=== PATIENT | male | born 1975 | race African-American/Black ===

== ENCOUNTER 2024-02-25 20:54 | Emergency (ER) | payer SELFPAY ==
[2024-02-25 21:27] LABS: Specific Gravity 1.015 (1.005-1.030); Sqamous Epithelial None Seen /HPF (None Seen); Urine Bacteria None Seen /HPF (<20); Urine Bilirubin NEGATIVE (Negative); Urine Blood Negative (Negative); Urine Clarity Clear (Clear); Urine Color Light-Yellow (Yellow); Urine Culture Reflex Order NOT NEEDED; Urine Glucose NEGATIVE (Negative); Urine Ketones NEGATIVE (Negative); Urine Microscopic Reflex YN ORDER UMIC; Urine Nitrite NEGATIVE (Negative); Urine Protein NEGATIVE (Negative); Urine RBC <5 /HPF (None Seen); Urine Urobilinogen Normal (Normal); Urine WBC <5 /HPF (<5); Urine pH 5.5 (5.0-7.0)
[2024-02-25 21:34] LABS: Barbiturates NEGATIVE (NEGATIVE); Benzodiazepines NEGATIVE (NEGATIVE); Cocaine NEGATIVE (NEGATIVE); METHAMPHETAM POSITIVE (NEGATIVE); Methadone NEGATIVE (NEGATIVE); Opiates NEGATIVE (NEGATIVE); Phencyclidine NEGATIVE (NEGATIVE); THC Cannibis NEGATIVE (NEGATIVE)
[2024-02-25] MEDS ORDERED: FOLIC ACID 5 MG/ML VIAL ONE (21:42)
[2024-02-25] MEDS ORDERED: THIAMINE 200 MG/2 ML INJ ONE (21:42)
[2024-02-25] MEDS ORDERED: MULTIVITAMINS 10 ML VIAL (INJ) IV ONE (21:42)
[2024-02-25] MEDS ORDERED: NA CHLORIDE 0.9% 2,000 ML ONE (21:43)
[2024-02-25 21:47] LABS: Absolute Basophils 0.1 K/uL (0-0.5); Absolute Eosinophils 0.1 K/uL (0-0.5); Absolute Lymphocytes (CBC) 2.7 K/uL (0.7-4.9); Absolute Monocytes 0.4 K/uL (0.1-1.3); Absolute Neutrophil 9.5 K/uL (1.8-8.0); Eosinophils % 0.5 % (0-4.4); Hematocrit 41.6 % (39.6-49.0); Hemoglobin 14.1 g/dL (13.6-17.9); Lymphocytes % 20.9 % (15.3-44.8); MCH 29.6 pg (27.0-35.0); MCHC 33.8 g/dL (32.0-36.0); MCV 87.6 fL (80-100); Monocytes % 3.3 % (3.3-12.3); Neutrophils % 74.3 % (41.7-73.7); Nucleated Red Blood Cells % 0.1 % (0-0); Platelets 330 thou/uL (152-406); RBC Red Blood Cell Count 4.75 M/uL (4.33-5.43); Red Cell Distribution Width 13.9 % (12.1-15.2)
[2024-02-25 22:10] LABS: ALT/SGPT 31 U/L (16-61); AST/SGOT 12 U/L (15-37); Albumin 3.5 g/dL (3.4-5.0); Albumin/Globulin Ratio 0.9 (1.1-1.8); Alkaline Phosphatase 48 U/L (45-117); Anion Gap 8.6 mEq/L (5.0-15.0); BUN Blood Urea Nitrogen 11 mg/dL (7-18); Bicarbonate 25 mEq/L (21-32); Bilirubin Direct < 0.2 mg/dL (0-0.2); Bilirubin Indirect, Calculated 0.1 mg/dL (0.2-0.8); Bilirubin Total 0.3 mg/dL (0.2-1.0); Globulin 3.7 g/dL (2.3-3.5); Glomerular Filtration Rate 103 ml/min (=/>90); Glucose Level 211 mg/dL (74-106); Potassium 3.6 mEq/L (3.5-5.1); Protein, Total 7.2 g/dL (6.4-8.2); Sodium Level 142 mEq/L (136-145); Troponin High Sensitivity 7.4 pg/mL (<58.9)
[2024-02-25 22:14] LABS: PT Prothrombin Time 9.8 SECONDS (9.4-12.5); PTT, Activated Partial Thromb 28.9 SECONDS (24.3-36.9); Protime INR 0.87
--- NOTE | 2024-02-25 23:48 | EDPHYS ---
Physician Documentation [facility] Name: Constantino Chao Jr Age: 48 yrs Sex: Male : 1975 Arrival Date: 02/25/2024 Time: 20:54 Bed 15 Private MD: ED Physician Adonis Sevilla HPI: 02/24 22:49 This 48 yrs old Black Male presents to ER via EMS with complaints of Fall Injury. kali 22:49 Details of fall: The patient fell from an upright position, while standing. Onset: The kali symptoms/episode began/occurred just prior to arrival. Associated injuries: The patient sustained neck injury, upper back injury, injury to the low back. Severity of symptoms: At their worst the symptoms were mild, moderate, in the emergency department the symptoms are unchanged. It is unknown whether or not the patient has had similar symptoms in the past. Historical: - Allergies: 21:00 Aspirin; me1 21:00 BACLOFEN; me1 21:00 Morphine; me1 - PMHx: 21:00 Diabetes mellitus; Headache; Chronic back pain; me1 - PSHx: 21:00 back surgery; me1 - Immunization history:: Adult Immunizations up to date. - Infectious Disease History:: Denies. - Social history:: Smoking status: Patient reports the use of cigarette tobacco products, smokes one pack cigarettes per day. - Family history:: not pertinent. ROS: 22:49 Constitutional: Negative for fever, chills, and weight loss, Eyes: Negative for injury, kali pain, redness, and discharge, ENT: Negative for injury, pain, and discharge, Neck: Negative for injury, pain, and swelling, Cardiovascular: Negative for chest pain, palpitations, and edema, Respiratory: Negative for shortness of breath, cough, wheezing, and pleuritic chest pain, Abdomen/GI: Negative for abdominal pain, nausea, vomiting, diarrhea, and constipation, Back: Negative for injury and pain, : Negative for injury, bleeding, discharge, and swelling, MS/Extremity: Negative for injury and deformity, Skin: Negative for injury, rash, and discoloration, Psych: Negative for depression, anxiety, suicide ideation, homicidal ideation, and hallucinations, Allergy/Immunology: Negative for hives, rash, and allergies, Endocrine: Negative for neck swelling, polydipsia, polyuria, polyphagia, and marked weight changes, Hematologic/Lymphatic: Negative for swollen nodes, abnormal bleeding, and unusual bruising, 22:49 Neuro: Positive for altered mental status, Exam: 22:49 Constitutional: This is a well developed, well nourished patient who is awake, alert, kali and in no acute distress. Head/Face: Normocephalic, atraumatic. Eyes: Pupils equal round and reactive to light, extra-ocular motions intact. Lids and lashes normal. Conjunctiva and sclera are non-icteric and not injected. Cornea within normal limits. Periorbital areas with no swelling, redness, or edema. ENT: Nares patent. No nasal discharge, no septal abnormalities noted. Tympanic membranes are normal and external auditory canals are clear. Oropharynx with no redness, swelling, or masses, exudates, or evidence of obstruction, uvula midline. Mucous membranes moist. Neck: Trachea midline, no thyromegaly or masses palpated, and no cervical lymphadenopathy. Supple, full range of motion without nuchal rigidity, or vertebral point tenderness. No Meningismus. Chest/axilla: Normal chest wall appearance and motion. Nontender with no deformity. No lesions are appreciated. Cardiovascular: Regular rate and rhythm with a normal S1 and S2. No gallops, murmurs, or rubs. Normal PMI, no JVD. No pulse deficits. Respiratory: Lungs have equal breath sounds bilaterally, clear to auscultation and percussion. No rales, rhonchi or wheezes noted. No increased work of breathing, no retractions or nasal flaring. Abdomen/GI: Soft, non-tender, with normal bowel sounds. No distension or tympany. No guarding or rebound. No evidence of tenderness throughout. Back: No spinal tenderness. No costovertebral tenderness. Full range of motion. Male : Normal genitalia with no discharge or lesions. Skin: Warm, dry with normal turgor. Normal color with no rashes, no lesions, and no evidence of cellulitis. MS/ Extremity: Pulses equal, no cyanosis. Neurovascular intact. Full, normal range of motion. Neuro: Awake and alert, GCS 15, oriented to person, place, time, and situation. Cranial nerves II-XII grossly intact. Motor strength 5/5 in all extremities. Sensory grossly intact. Cerebellar exam normal. Normal gait. Psych: Awake, alert, with orientation to person, place and time. Behavior, mood, and affect are within normal limits. 23:02 ECG was reviewed by the Attending Physician. [facility] Vital Signs: 20:57 BP 137 / 81; Pulse 96; Resp 22; Temp 98.4; Pulse Ox 100% ; Weight 88.45 kg; Height 6 me1 ft. 2 in. ; Pain 10/; 21:30 BP 130 / 79; Pulse 96; Resp 20; Pulse Ox 96% ; me1 22:00 BP 134 / 81; Pulse 85; Resp 19; Pulse Ox 96% ; me1 23:28 BP 118 / 77; Pulse 88; Resp 19; Pulse Ox 97% ; me1 02/25 00:41 BP 124 / 90; Pulse 82; Resp 16; Pulse Ox 97% ; dd2 02/24 20:57 Body Mass Index 25.04 (88.45 kg, 187.96 cm) hi1 02/24 20:57 Pain Scale: [place] [facility] [place] MDM: 02/24 20:59 Medical Screening Exam initiated [facility] 22:51 Differential diagnosis: abrasion, closed head injury, contusion, fracture, laceration, kali multiple trauma, sprain, strain. Data reviewed: vital signs, nurses notes, lab test result(s), EKG, radiologic studies, doppler. Consideration of Admission/Observation Escalation of care including admission/observation considered. I considered the following discharge prescriptions or medication management in the emergency department Medications were administered in the Emergency Department. See MAR. Independent interpretation of the following test(s) in the Emergency Department EKG: See my EKG interpretation above. Test considered but Not performed: MRI: no mri brain. Historians other than the Patient: EMS: ems well informed. Care significantly affected by the following chronic conditions: Diabetes, chronic back pain. Counseling: I had a detailed discussion with the patient and/or guardian regarding the historical points, exam findings, and any diagnostic results supporting the discharge/admit diagnosis, the presence of at least one elevated blood pressure reading (>120/80) during this emergency department visit, lab results, radiology results, the need for outpatient follow up, for definitive care, a family practitioner. 02/24 21:04 Order name: Acetaminophen; Complete Time: 22:42 [facility] 02/24 21:04 Order name: Basic Metabolic Panel; Complete Time: 22:42 [facility] 02/24 21:04 Order name: CBC with Diff; Complete Time: 22:42 [facility] 02/24 21:04 Order name: ETOH Level; Complete Time: 22:42 [facility] 02/24 21:04 Order name: Hepatic Function; Complete Time: 22:42 [facility] 02/24 21:04 Order name: PT-INR; Complete Time: 22:42 [facility] 02/24 21:04 Order name: Ptt, Activated; Complete Time: 22:42 [facility] 02/24 21:04 Order name: Salicylate; Complete Time: 22:42 [facility] 02/24 21:04 Order name: Urinalysis w/ reflexes; Complete Time: 22:42 [facility] 02/24 21:04 Order name: Urine Drug Screen; Complete Time: 22:42 [facility] 02/24 21:04 Order name: Troponin High Sensitivity; Complete Time: 22:42 [facility] 02/24 21:04 Order name: CT Head C Spine [facility] 02/24 21:04 Order name: CT Chest Abdomen Pelvis W/O Contrast [facility] 02/24 21:04 Order name: EKG - Nurse/Tech; Complete Time: 21:27 [facility] 02/24 21:04 Order name: IV Saline Lock; Complete Time: 21:38 [facility] 02/24 21:04 Order name: Labs collected and sent; Complete Time: 21:38 [facility] 02/24 21:04 Order name: Suicide Screening ([place]); Complete Time: 21:06 [facility] EC:02 Rate is 97 beats/min. Rhythm is regular. QRS [place] is Normal. [place] interval is normal. QRS kali interval is normal. QT interval is normal. No Q waves. T waves are Normal. No ST changes noted. Clinical impression: NSR w/ Non-specific ST/T Changes and No evidence of ischemia. Interpreted by me. Reviewed by me. Administered Medications: 21:48 Drug: Banana Bag - (Multivitamin IV 1 amp, NS 0.9% IV 1000 ml, Thiamine IV 100 mg, me1 foLIC Acid IVPB 1 mg) IV at 500 ml/hr once Route: IV; Rate: 500 ml/hr; Site: right antecubital; 02/25 00:08 Follow up: Response: No adverse reaction; IV Status: Completed infusion; IV Intake: me1 1000ml 02/24 21:49 Drug: NS 0.9% IV 1000 ml IV at 1000 ml once; to be given as a bolus over 60 minutes me1 Route: IV; Rate: 1000 ml; Site: right antecubital; 23:38 Follow up: Response: No adverse reaction; IV Status: Completed infusion; IV Intake: me1 1000ml Disposition Summary: 02/25/24 23:47 Discharge Ordered Notes: Location: Home kali Problem: new kali Symptoms: have improved kali Condition: Stable kali Diagnosis - Fall on same level, unspecified kali - Syncope Near kali - Abuse of other non-psychoactive substances kali - Alcohol abuse with intoxication kali Followup: kali - With: Private Physician - When: 2 - 3 days - Reason: Recheck today's complaints, Continuance of care, Re-evaluation by your physician Discharge Instructions: - Discharge Summary Sheet kali - Finding Treatment for Addiction kali - Alcohol Intoxication kali - Near-Syncope kali - Substance Use Disorder kali - Alcohol Intoxication, Ropr-bc-Algf kali - Near-Syncope, Sfqe-cz-Meal kali - Substance Use Disorder and Mental Illness kali - Illegal Drug Use Information, Adult kali Forms: - Medication Reconciliation Form kali - Antibiotic Education kali - Prescription Opioid Use kali - Patient Portal Instructions kali - Leadership Thank You Letter kali Signatures: Dispatcher [employer] EDAdonis Slaughter MD MD cha Eddleman, Michelle, RN RN me1 Corrections: (The following items were deleted from the chart) 21:05 21:05 Head C Spine MPR Wo Con+CT.RAD.BRZ ordered. EDMS EDMS 21:05 21:05 Chest Abdomen Pelvis Wo Con+CT.RAD.BRZ ordered. EDMS EDMS
--- NOTE | 2024-02-25 23:48 | ER ---
Nurse's Notes [facility] Name: Constantino Chao Jr Age: 48 yrs Sex: Male : 1975 Arrival Date: 02/25/2024 Time: 20:54 Bed 15 Private MD: Diagnosis: Fall on same level, unspecified;Syncope Near;Abuse of other non-psychoactive substances;Alcohol abuse with intoxication Presentation: 02/24 20:57 Chief complaint: EMS states: toned out for fall. Family found patient lying passed out me1 in the driveway. Patient had already called EMS for SOB. On arrival patient has severe pain 10/10 to neck, left arm and back and states he thinks he fell. Patient drank "a lot of whiskey" today after being sober for several years. Coronavirus screen: Vaccine status: Patient reports being unvaccinated. Ebola Screen: No symptoms or risks identified at this time. Initial Sepsis Screen: Does the patient meet any 2 criteria? No. Patient's initial sepsis screen is negative. Does the patient have a suspected source of infection? No. Patient's initial sepsis screen is negative. Risk Assessment: Do you want to hurt yourself or someone else? Patient reports no desire to harm self or others. Onset of symptoms is unknown. 20:57 Method Of Arrival: EMS: [facility] [place] 20:57 Acuity: MARNI 3 me1 Triage Assessment: 21:01 General: Appears uncomfortable, unkempt, well developed, well nourished, Behavior is me1 cooperative, appropriate for age, anxious, crying. Pain: Complains of pain in back of neck, back of left arm and posterior chest Pain does not radiate. Pain currently is 10 out of 10 on a pain scale. Quality of pain is described as sharp, Pain began suddenly, Is continuous. EENT: No signs and/or symptoms were reported regarding the EENT system. Neuro: Level of Consciousness is awake, alert, obeys commands, Oriented to person, place, time, situation, Appropriate for age. Cardiovascular: Patient's skin is warm and dry. Respiratory: Airway is patent Respiratory effort is even, unlabored, Respiratory pattern is regular, symmetrical. GI: No signs and/or symptoms were reported involving the gastrointestinal system. : No signs and/or symptoms were reported regarding the genitourinary system. Derm: Skin is intact, is healthy with good turgor, Skin is pink, warm \\T\\ dry. Musculoskeletal: Reports pain in back of neck, back of left arm and posterior chest. Injury Description: s/p fall with pain to neck, back and left arm. Historical: - Allergies: 21:00 Aspirin; me1 21:00 BACLOFEN; me1 21:00 Morphine; me1 - PMHx: 21:00 Diabetes mellitus; Headache; Chronic back pain; me1 - PSHx: 21:00 back surgery; me1 - Immunization history:: Adult Immunizations up to date. - Infectious Disease History:: Denies. - Social history:: Smoking status: Patient reports the use of cigarette tobacco products, smokes one pack cigarettes per day. - Family history:: not pertinent. Screenin:03 [facility] ED Fall Risk Assessment (Adult) History of falling in the last 3 months, or1 including since admission Yes- single mechanical fall (1 pt) Confusion or Disorientation No (0 pts) Intoxicated or Sedated Yes (3 pts) Impaired Gait Yes (1 pt) Mobility Assist Device Used No (0 pt) Altered Elimination No (0 pt) Score/Fall Risk Level 3 or more points = High Risk Maintained a safe environment, Provided non-skid footwear, Hourly rounding (assess needs \\T\\ fall precautionary measures) done. Abuse screen: Denies threats or abuse. Nutritional screening: No deficits noted. Tuberculosis screening: No symptoms or risk factors identified. Assessment: 21:03 General: See triage assessment.. Pain: Complains of pain in posterior chest and back of me1 left arm and back of neck. Psych: 21:06 [place] Suicide Severity Screening: In the past month, have you wished you were me1 or wished you could go to sleep and not wake up? Patient responds "No." "In the past month, have you actually had any thoughts of killing yourself?" Patient responds "no." "In your lifetime, have you ever done anything, started to do anything, or prepared to do anything to end your life?" Patient responds "no.". Subjective: Patient's mood is sad, Delusions are denied, Hallucinations are denied Having thoughts of Denies SI or HI. Objective: Patient is cooperative, restless, Speech is normal, Affect is appropriate. Interventions: Urine collected and sent for urine drug test. Safety Checks: n/a. Patient uses "a lot of whiskey". Vital Signs: 20:57 BP 137 / 81; Pulse 96; Resp 22; Temp 98.4; Pulse Ox 100% ; Weight 88.45 kg; Height 6 me1 ft. 2 in. ; Pain 10/10; 21:30 BP 130 / 79; Pulse 96; Resp 20; Pulse Ox 96% ; me1 22:00 BP 134 / 81; Pulse 85; Resp 19; Pulse Ox 96% ; me1 23:28 BP 118 / 77; Pulse 88; Resp 19; Pulse Ox 97% ; me1 02/25 00:41 BP 124 / 90; Pulse 82; Resp 16; Pulse Ox 97% ; dd2 02/24 20:57 Body Mass Index 25.04 (88.45 kg, 187.96 cm) me1 02/24 20:57 Pain Scale: Adult [facility] [place] ED Course: 02/24 20:57 Patient arrived in ED. me1 20:59 Adonis Sevilla MD is Attending Physician. kali 21:00 Triage completed. me1 21:01 Arm band placed on Patient placed in an exam room. me1 21:03 Patient has correct armband on for positive identification. Bed in low position. Call [facility] [place] light in reach. Side rails up X2. Provided Education on: POC. Verbalized understanding. . Client placed on continuous cardiac and pulse oximetry monitoring. NIBP monitoring applied. Pulse ox on. NIBP on. 21:03 No provider procedures requiring assistance completed. me1 21:13 Yvette Tarango, RN is Primary Nurse. me1 21:28 EKG done, by ED staff, reviewed by Adonis Sevilla MD. oe 21:38 Troponin High Sensitivity Sent. me1 21:38 Acetaminophen Sent. me1 21:39 Basic Metabolic Panel Sent. me1 21:39 CBC with Diff Sent. me1 21:39 ETOH Level Sent. me1 21:39 Hepatic Function Sent. me1 21:39 PT-INR Sent. me1 21:39 Ptt, Activated Sent. me1 21:39 Salicylate Sent. me1 21:39 Initial lab(s) drawn, by or, sent to lab. Urine collected: clean catch specimen, [place] me1 colored. Inserted saline lock: 20 gauge in right antecubital area, using aseptic technique. 22:44 CT Head C Spine In Process Unspecified. EDMS 22:44 CT Chest Abdomen Pelvis W/O Contrast In Process Unspecified. EDMS 02/25 00:41 IV discontinued, intact, bleeding controlled, No redness/swelling at site. Pressure dd2 dressing applied. Administered Medications: 02/24 21:48 Drug: Banana Bag - (Multivitamin IV 1 amp, NS 0.9% IV 1000 ml, Thiamine IV 100 mg, me1 foLIC Acid IVPB 1 mg) IV at 500 ml/hr once Route: IV; Rate: 500 ml/hr; Site: right antecubital; 02/25 00:08 Follow up: Response: No adverse reaction; IV Status: Completed infusion; IV Intake: me1 1000ml 02/24 21:49 Drug: NS 0.9% IV 1000 ml IV at 1000 ml once; to be given as a bolus over 60 minutes me1 Route: IV; Rate: 1000 ml; Site: right antecubital; 23:38 Follow up: Response: No adverse reaction; IV Status: Completed infusion; IV Intake: me1 1000ml Medication: 21:03 VIS not applicable for this client. me1 Intake: 23:38 IV: 1000ml; Total: 1000ml. me1 02/25 00:08 IV: 1000ml; Total: 2000ml. me1 Outcome: 02/24 23:47 Discharge ordered by . kali 02/25 00:41 Discharged to home ambulatory, dd2 Condition: stable Discharge instructions given to patient, Instructed on discharge instructions, follow up and referral plans. Demonstrated understanding of instructions, follow-up care, 00:42 Patient left the ED. dd2 Signatures: Dispatcher [employer] Adonis Longoria MD MD cha Espinosa, [place] oe Eddleman, Michelle, STEVEN RN me1 MARKO KIM RN RN dd2
--- NOTE | 2024-02-25 23:59 | RAD REPORT ---
EXAM: CT Chest, Abdomen and Pelvis Without Intravenous Contrast CLINICAL HISTORY: The patient is 48 years old and is Male; COUGH TECHNIQUE: Axial computed tomography images of the chest, abdomen and pelvis without intravenous contrast. S agittal and coronal reformatted images were created and reviewed. This CT exam was performed using one or more of the following dose reduction techniques: automated exposure control, adjustmen t of the mA and/or kV according to patient size, and/or use of iterative reconstruction technique. COMPARISON: No relevant prior studies available. FINDINGS: CHEST: LUNGS: The lungs are clear of focal opacity, mass, or consolidation. PLEURAL SPACE: Unremarkable. No significant effusion. No pneumothorax. HEART: No cardiomegaly. No pericardial effusion. ABDOMEN: LIVER: Homogeneous without focal mass. GALLBLADDER AND BILE DUCTS: The gallbladder slightly contracted. No calcified gallstones or ducta l dilatation is seen. PANCREAS: Unremarkable. No ductal dilation. SPLEEN: Unremarkable. ADRENALS: Unremarkable. No mass. KIDNEYS AND URETERS: Mild prominence of the right ureter is present. No obstructing renal or uret eral calculus is seen. Right intrarenal calcifications are present. Mild nonspecific right perinephric stranding is suggested. There is no hydronephrosis or hydroureter of the left kidney. STOMACH AND BOWEL: The stomach is well distended with food contents. The small bowel is normal in caliber. Stool is present throughout the colon. Scattered colonic diverticula are noted without surrounding inflammation. There is no mucosal thickening or evidence of obstruction. PELVIS: APPENDIX: The appendix is normal in caliber without surrounding inflammation. BLADDER: The bladder is well distended. No stones. REPRODUCTIVE: Unremarkable as visualized. CHEST, ABDOMEN and PELVIS: INTRAPERITONEAL SPACE: Unremarkable. No significant fluid collection. No free air. BONES/JOINTS: There is no acute fracture of the visualized axial and appendicular skeleton. The v ertebral body heights and alignment are maintained. Minimal degenerative change at L5-S1 is noted. SOFT TISSUES: A small fat-containing umbilical hernia is present. VASCULATURE: Unremarkable. No aortic aneurysm. LYMPH NODES: Unremarkable. No enlarged lymph nodes. IMPRESSION: 1. Mild prominence of the right ureter without obstructing calculus. Findings may be secondary to r ecently passed stone. Superimposed mild pyelonephritis is within the differential mild perinephric stranding 2. No evidence of solid organ injury or traumatic bony findings on this noncontrasted CT of the [address], abdomen, and pelvis. Electronically signed by: Destinee Hartley MD 02/25/2024 11:42 PM CDT RP Due to temporary technical issues with the PACS/[employer] reporting system, reports are being paolo d by the in-house radiologist without review as a courtesy to ensure prompt reporting the interpreting radiologist is fully responsible for the content of the report. Transcribed Date/Time: 02/25/2024 11:59 PM
--- NOTE | 2024-02-25 23:59 | RAD REPORT ---
EXAM: CT Head and Cervical Spine Without Intravenous Contrast CLINICAL HISTORY: The patient is 48 years old and is Male; TRAUMA TECHNIQUE: Axial computed tomography images of the head/brain and cervical spine without intravenous contrast. Sagittal and coronal reformatted images were created and reviewed. This CT exam was performed using one or more of the following dose reduction techniques: automated exposure control, adjustmen t of the mA and/or kV according to patient size, and/or use of iterative reconstruction technique. COMPARISON: No relevant prior studies available. FINDINGS: BRAIN: Unremarkable. No hemorrhage. No significant white matter disease. No edema. VENTRICLES: Unremarkable. No ventriculomegaly. SKULL: No acute fracture. SINUSES: Unremarkable as visualized. No acute sinusitis. MASTOID AIR CELLS: Unremarkable as visualized. No mastoid effusion. VERTEBRAE: Straightening of the normal cervical curvature is present. The vertebral body height s and alignment are maintained. There is no acute fracture. Extensive facet arthropathy on the left from C2 through C5 and on the right at C3-C4 is noted. DISCS/SPINAL CANAL/NEURAL FORAMINA: The intervertebral disc spaces are maintained. No spinal dong l stenosis. SOFT TISSUES: The soft tissues are normal. LUNG APICES: The lung apices are clear. IMPRESSION: 1. No acute intracranial findings. 2. Straightening of the normal cervical curvature is present. Findings may be secondary to patien t position versus muscle spasm. Electronically signed by: Destinee Hartley MD 02/25/2024 11:37 PM CDT RP Due to temporary technical issues with the PACS/[employer] reporting system, reports are being paolo d by the in-house radiologist without review as a courtesy to ensure prompt reporting the interpreting radiologist is fully responsible for the content of the report. Transcribed Date/Time: 02/25/2024 11:59 PM
[2024-02-26 06:25] VITALS: TEMP 98.4
[2024-02-26 06:30] VITALS: O2SAT 97
[2024-02-26 06:32] VITALS: BP 124/90
--- NOTE | 2024-02-28 12:01 | EKG ---
Test Date: 2024-02-25 Test Time: 21:24:52 Crocheter: CARLA MEASUREMENT RESULTS: Intervals: Rate: 97 MN: 142 QRSD: 86 QT: 364 QTc: 462 [place]: P: 67 MN: 142 QRS: 70 T: 64 INTERPRETIVE STATEMENTS: Normal sinus rhythm Nonspecific T wave abnormality Prolonged QT Abnormal ECG No previous ECG available for comparison Electronically Signed On 02-28-24 11:54:12 CDT by Ayden Parsons
== END 2024-02-26 00:42 | disposition home or self-care (01) ==
LOC: ER 20:54 → EDBD 20:54 → ER 02-26 00:42
DX: R55 Syncope and collapse (principal); F10.129 Alcohol abuse with intoxication, unspecified; F55.8 Abuse of other non-psychoactive substances; W18.30XA Fall on same level, unspecified, initial encounter
CPT/HCPCS: 36415; 70450; 71250; 72125; 74176; 80048; 80076; 80143; 80179; 80307; 81001; 82077; 84484; 85025; 85610; 85730; 93005; 96365; 96366; 99285; J3411; J7030

== ENCOUNTER 2024-05-17 18:02 | Inpatient (IN) | payer MEDICARE, SELFPAY ==
[2024-05-17] MEDS ORDERED: NA CHLORIDE 0.9% 500 ML ONE (18:52)
[2024-05-17] MEDS ORDERED: CEFTRIAXONE 1000 MG/VIAL ONE (18:52)
[2024-05-17] MEDS ORDERED: NA CHLORIDE 0.9% 2,000 ML ONE (18:52)
[2024-05-17 18:54] LABS: Absolute Basophils 0.1 K/uL (0-0.5); Absolute Eosinophils 0.1 K/uL (0-0.5); Absolute Neutrophil 11.8 K/uL (1.8-8.0); Basophils % 0.9 % (0-1.3); Eosinophils % 0.4 % (0-4.4); Hematocrit 47.2 % (39.6-49.0); Hemoglobin 15.6 g/dL (13.6-17.9); Lymphocytes % 18.7 % (15.3-44.8); MCH 28.3 pg (27.0-35.0); MCHC 33.1 g/dL (32.0-36.0); MCV 85.7 fL (80-100); MPV 8.3 fL (7.6-11.3); Monocytes % 6.3 % (3.3-12.3); Neutrophils % 73.7 % (41.7-73.7); Nucleated Red Blood Cells % 0.1 % (0-0); Platelets 478 thou/uL (152-406); Red Cell Distribution Width 13.1 % (12.1-15.2)
[2024-05-17 19:04] LABS: PT Prothrombin Time 9.9 SECONDS (9.4-12.5); PTT, Activated Partial Thromb 26.7 SECONDS (24.3-36.9); Protime INR 0.88
[2024-05-17 19:14] LABS: Specific Gravity 1.024 (1.005-1.030); Sqamous Epithelial <5 /HPF (None Seen); Urine Bacteria None Seen /HPF (<20); Urine Bilirubin NEGATIVE (Negative); Urine Blood Negative (Negative); Urine Clarity Clear (Clear); Urine Color Colorless (Yellow); Urine Crystals Unidentified Few /HPF (None Seen); Urine Culture Reflex Order NOT NEEDED; Urine Glucose 4+ (Over) (Negative); Urine Ketones 1+ (Negative); Urine Microscopic Reflex YN ORDER UMIC; Urine Mucus Slight /HPF (None Seen); Urine Nitrite NEGATIVE (Negative); Urine Protein NEGATIVE (Negative); Urine Urobilinogen Normal (Normal); Urine WBC <5 /HPF (<5); Urine Yeast (Budding) Trace /HPF (None Seen)
[2024-05-17 19:23] LABS: Albumin 3.5 g/dL (3.4-5.0); Albumin/Globulin Ratio 0.7 (1.1-1.8); Anion Gap 15.4 mEq/L (5.0-15.0); Bilirubin Total 0.8 mg/dL (0.2-1.0); Potassium 5.4 mEq/L (3.5-5.1); Protein, Total 8.5 g/dL (6.4-8.2)
[2024-05-17] MEDS ORDERED: INSULIN REGULAR (HUMAN) 100 UNIT/ML ONE ×2 (19:30→20:33)
--- NOTE | 2024-05-17 19:33 | RAD REPORT ---
EXAMINATION: ONE VIEW CHEST XR CLINICAL INDICATION: COUGH TECHNIQUE: Frontal chest projection is submitted. Examination is limited by patient positioning and t echnique. COMPARISON: No prior exam. FINDINGS: The lungs are well inflated and clear. The heart is normal in size. No displaced fractures identified . IMPRESSION: No acute intrathoracic abnormalities.
[2024-05-17] MEDS ORDERED: FLUCONAZOLE 100 MG TAB ONE (19:48)
[2024-05-17] MEDS ORDERED: METRONIDAZOLE 500mg IVPB 500 MG/100 ML BAG IV ONE (19:49)
[2024-05-17] MEDS ORDERED: HYDROCODONE/APAP 5/325 MG TAB ONE (19:49)
[2024-05-17] MEDS ORDERED: NA CHLORIDE 0.9% 1,000 ML ONE ×2 (19:49→22:21)
[2024-05-17 21:29] LABS: Anion Gap 11.9 mEq/L (5.0-15.0); Potassium 3.9 mEq/L (3.5-5.1)
--- NOTE | 2024-05-17 21:36 | EDPHYS ---
Physician Documentation [facility] Name: Constantino Chao Age: 49 yrs Sex: Male : 1975 Arrival Date: 05/17/2024 Time: 18:02 Bed 2 Private MD: ED Physician Conner Beckwith HPI: 05/17 18:20 This 49 yrs old Black Male presents to ER via Unassigned with complaints of Weakness, ec2 Urinary Problem, High Blood Sugar. 18:20 Patient arrives today for hyperglycemia, general weakness as well as increased urinary ec2 frequency. Patient is a diabetic, takes insulin has not taken his insulin in several weeks. Reports increasing urinary frequency otherwise no fevers or chills, no nausea or vomiting.. 19:33 Patient care was assumed from Dr. Ellis , patient reports generalized weakness sp4 discomfort on urination elevated blood sugar and also infected penile foreskin.. Historical: - Allergies: 18:23 Aspirin; cm10 18:23 Baclofen; cm10 18:23 Morphine; cm10 - PMHx: 18:23 chronic back pain; diabetes mellitus; headache; cm10 - PSHx: 18:23 back surgery; cm10 - Immunization history:: Adult Immunizations unknown. - Infectious Disease History:: Denies. - Social history:: Smoking status: Patient reports the use of cigarette tobacco products, smokes one-half pack cigarettes per day, Patient uses street drugs, marijuana, Methamphetamine (Meth). - Family history:: not pertinent. ROS: 18:20 Constitutional: as per hpi ec2 19:33 Constitutional: Negative for fever, chills, and weight loss, positive generalized sp4 weakness , positive elevated blood sugar positive for skin infection positive pain with urination 19:33 All other systems are negative, Exam: 18:20 Constitutional: GEN: NAD Head: atraumatic Eyes: EOMI Ears: External ears are ec2 normal. CV: Tachycardia LUNGS: no respiratory distress ABD: non-distended SKIN: no evidence of rashes MSK: no evidence of trauma 19:33 Constitutional: This is a well developed, well nourished patient who is awake, alert, sp4 ill appearing, non toxic Head/Face: Normocephalic, atraumatic. Eyes: Pupils equal round and reactive to light, extra-ocular motions intact. Lids and lashes normal. Conjunctiva and sclera are not injected. Cornea within normal limits. Periorbital areas with no swelling, redness, or edema. ENT: Nares patent. No nasal discharge, no septal abnormalities noted. Tympanic membranes are normal and external auditory canals are clear. Oropharynx with no redness, swelling, or masses, exudates, or evidence of obstruction, uvula midline. Mucous membranes moist. Neck: Trachea midline, no thyromegaly or masses palpated, and no cervical lymphadenopathy. Supple, full range of motion without nuchal rigidity, or vertebral point tenderness. Chest/axilla: Normal chest wall appearance and motion. Nontender with no deformity. No lesions are appreciated. Cardiovascular: Regular rate and rhythm with a normal S1 and S2. No gallops, murmurs, or rubs. Normal PMI, no JVD. No pulse deficits. Respiratory: Lungs have equal breath sounds bilaterally, clear to auscultation and percussion. No rales, rhonchi or wheezes noted. No increased work of breathing, no retractions or nasal flaring. Abdomen/GI: Soft, with normal bowel sounds. No distension or tympany. No guarding or rebound. No evidence of tenderness throughout. Back: No spinal tenderness. No costovertebral tenderness. Male : Normal genitalia with retractable foreskin, uncircumcised male, significant amount of foreskin maceration associated with advanced case of balanitis appears to have poor hygiene Skin: Warm, poor skin turgor Normal color with no rashes, no lesions, and no evidence of cellulitis. MS/ Extremity: Pulses equal, no cyanosis. Neurovascular intact. Full, normal range of motion. Neuro: Awake and alert, GCS 15, oriented to person, place, time, and situation. Cranial nerves II-XII grossly intact. Motor strength 5/5 in all extremities. Sensory grossly intact. Psych: Awake, alert, with orientation to person, place and time. Behavior, mood, and affect are within normal limits 19:35 ECG was reviewed by the Attending Physician. EKG at 1911 normal sinus rhythm at the sp4 rate of 98 Vital Signs: 18:21 BP 110 / 82; Pulse 110; Resp 24; Temp 98.4(O); Pulse Ox 98% on R/A; Weight 88.45 kg; cm10 Height 6 ft. 2 in. ; Pain 8/10; 19:30 BP 134 / 88; Pulse 88; Resp 15; Pulse Ox 98% on R/A; cm10 20:00 BP 124 / 85; Pulse 85; Resp 15; Pulse Ox 99% ; cm10 21:00 BP 129 / 92; Pulse 89; Resp 15; Pulse Ox 97% on R/A; cm10 18:21 Body Mass Index 25.04 (88.45 kg, 187.96 cm) cm10 18:21 Pain Scale: Adult cm10 Chung Coma Score: 19:33 Eye Response: spontaneous(4). Motor Response: obeys commands(6). Verbal Response: sp4 oriented(5). Total: 15. MDM: 18:04 Medical Screening Exam initiated ec2 18:21 Data reviewed: vital signs, nurses notes. ED course: Patient arrives today for poor ec2 p.o. intake, generalized weakness as well as urinary frequency. Will obtain lab work, urine studies, give the patient crystalloid.. 05/17 18:29 Order name: Blood Culture Adult (2) ec2 04 18:29 Order name: CBC with Diff; Complete Time: 18:58 ec2 04 18:29 Order name: CMP; Complete Time: 19:36 ec2 04 18:29 Order name: Lactate w/ 2H reflex if indic.; Complete Time: 19:22 ec2 04 18:29 Order name: Protime (+inr); Complete Time: 19:05 ec2 04 18:29 Order name: Ptt, Activated; Complete Time: 19:05 ec2 05/17 18:29 Order name: Urinalysis w/ reflexes; Complete Time: 19:22 ec2 04 18:30 Order name: BHB; Complete Time: 19:22 ec2 05/17 19:08 Order name: Glucose, Ancillary Testing; Complete Time: 19:22 EDMS 05/17 19:43 Order name: Influenza Screen (a \T\ B); Complete Time: 21:31 sp4 05/17 20:31 Order name: Glucose, Ancillary Testing; Complete Time: 20:45 EDMS 05/17 20:53 Order name: Glucose; Complete Time: 21:31 cm10 05/17 21:13 Order name: BMP; Complete Time: 21:31 sp4 05/17 22:00 Order name: Lactate w/ 2H reflex if indic. EDMS 05/17 22:00 Order name: Magnesium EDMS 05/17 22:00 Order name: Phosphorus EDMS 05/17 22:00 Order name: Urinalysis w/ reflexes EDMS 05/17 22:00 Order name: Basic Metabolic Panel EDMS 05/17 22:00 Order name: Basic Metabolic Panel EDMS 05/17 22:00 Order name: CBC with Automated Diff EDMS 05/17 22:00 Order name: CBC with Automated Diff EDMS 05/17 22:00 Order name: Troponin High Sensitivity EDMS 05/17 22:00 Order name: Troponin High Sensitivity EDMS 05/17 22:00 Order name: Troponin High Sensitivity EDMS 05/17 22:00 Order name: Troponin High Sensitivity EDMS 05/17 18:29 Order name: Chest Single View XRAY; Complete Time: 19:36 ec2 05/17 18:29 Order name: Accucheck; Complete Time: 19:05 ec2 05/17 18:29 Order name: Cardiac monitoring; Complete Time: 19:14 ec2 05/17 18:29 Order name: EKG - Nurse/Tech; Complete Time: 19:10 ec2 05/17 18:29 Order name: IV Saline Lock - Large Bore; Complete Time: 18:47 ec2 05/17 18:29 Order name: Labs collected and sent; Complete Time: 18:47 ec2 05/17 18:29 Order name: O2 Per Protocol; Complete Time: 18:47 ec2 05/17 18:29 Order name: O2 Sat Monitoring; Complete Time: 18:47 ec2 05/17 18:29 Order name: Vital Signs; Complete Time: 18:47 ec2 EC:11 Rate is 98 beats/min. Rhythm is regular, Normal Sinus Rhythm. QRS [place] is Normal. RI sp4 interval is normal. QRS interval is normal. QT interval is normal. No Q waves. T waves are Normal. No ST changes noted. Clinical impression: No evidence of ischemia. Interpreted by me. Reviewed by me. Administered Medications: 19:04 Drug: NS 0.9% IV (30 ml/kg) 30 ml/kg IV at bolus once; Sepsis Protocol; to be given as cm10 a bolus over 90 minutes Route: IV; Rate: bolus; Site: left forearm; 20:17 Follow up: Response: No adverse reaction; IV Status: Completed infusion; IV Intake: cm10 2653.5ml 19:37 Drug: Insulin Regular Human IVP 10 units IVP once {Co-Signature: ay (Caprice Reis cm10 RN).} Route: IVP; Site: left forearm; 20:21 Follow up: Response: No adverse reaction cm10 19:38 Drug: Rocephin IV 1 grams IV at calculated rate once; Given slow IV push per pharmacy cm10 instructions Route: IV; Rate: calculated rate; Site: left forearm; 19:45 Follow up: Response: No adverse reaction; IV Status: Completed infusion; IV Intake: [id number] 19:58 Drug: HYDROcodone-acetaminophen PO 5 mg-325 mg 2 tabs PO once Route: PO; cm10 20:40 Follow up: Response: No adverse reaction cm10 19:58 Drug: Fluconazole PO 200 mg PO once Route: PO; cm10 20:40 Follow up: Response: No adverse reaction cm10 20:17 Drug: metroNIDAZOLE IVPB 500 mg 100 ml IVPB at 200 ml/hr once over 30 mins Volume: 100 cm10 ml; Route: IVPB; Rate: 200 ml/hr; Infused Over: 30 mins; Site: left forearm; 21:24 Follow up: Response: No adverse reaction; IV Status: Completed infusion; IV Intake: cm10 100ml 20:17 Drug: NS 0.9% IV 1000 ml IV at 125 ml/hr Per protocol; to be given as a bolus over 60 cm10 minutes Route: IV; Rate: 125 ml/hr; Site: left forearm; 22:31 Follow up: Response: No adverse reaction; IV Status: Infusion continued upon admission; bm8 IV Intake: 250ml 20:40 Drug: Insulin Regular Human IVP 10 units IVP once {Co-Signature: bm8 (Hank Lawrence cm10 RN).} Route: IVP; Site: left forearm; 21:10 Follow up: Response: No adverse reaction cm10 22:31 Drug: Potassium Chloride PO Liquid 40 mEq PO once Route: PO; bm8 22:39 Follow up: Response: No adverse reaction bm8 22:31 Drug: NS 0.9% IV 1000 ml IV at 1 bolus Per protocol; to be given as a bolus over 60 bm8 minutes Route: IV; Rate: 1 bolus; Site: left forearm; 22:38 Follow up: Response: No adverse reaction; IV Status: Completed infusion; Infusion bm8 continued upon admission 22:31 Drug: Albumin IVPB 25 grams 100 ml IVPB once; (Note: Albumin 25% concentration) Volume: bm8 100 ml; Route: IVPB; Site: right forearm; 22:38 Follow up: Response: No adverse reaction; IV Status: Infusion continued upon admission bm8 22:32 Drug: Potassium Chloride IV 20 mEq IV at calculated rate once; administer over 1-2 bm8 hours Route: IV; Rate: calculated rate; Site: left forearm; 22:40 Follow up: Response: No adverse reaction; IV Status: Infusion continued upon admission bm8 Point of Care Testing: Blood Glucose: 19:05 Blood Glucose: High (>450 mg/dL); cm10 20:22 Blood Glucose: High (>450 mg/dL); cm10 Ranges: Critical Glucose Levels:Adult <50 mg/dl or >400 mg/dl <40 mg/dl or >180 mg/dl Disposition Summary: 05/17/24 21:35 Hospitalization Ordered Notes: Hospitalization Status: Inpatient Admission sp4 Provider: Prince Shari spTita Condition: Fair sp4 Problem: new sp4 Symptoms: have improved sp4 Bed/Room Type: Standard sp4 Location: Intensive Care Unit(05/17/24 22:26) cg Room Assignment: 7-(05/17/24 22:26) cg Diagnosis - Type 2 diabetes mellitus with hyperglycemia sp4 - Dehydration sp4 - Acute renal insufficiency, moderate to severe dehydration, uncontrolled diabetes sp4 Forms: - Medication Reconciliation Form sp4 - SBAR form sp4 - Leadership Thank You Letter sp4 Critical care time excluding procedures: 23:41 Critical care time: Bedside Care: 36 minutes, Consultation: 12 minutes, Family sp4 Intervention: 12 minutes. Total time: 60 minutes Signatures: Dispatcher [employer] Ольга Arias RN RN Conner Jackman MD MD sp4 Melissa Smith RN RN cm10 Rafa Golden MD MD ec2 Day Bella Brad RN RN bm8 Caprice Reis RN, Brad RN bm8 Corrections: (The following items were deleted from the chart) 18:29 18:29 BLOOD CULTURE*+BA.LAB.BRZ ordered. EDMS EDMS 18:29 18:29 CBC+H.LAB.BRZ ordered. EDMS EDMS 18:29 18:29 COMPREHENSIVE METABOLIC PANEL+C.LAB.BRZ ordered. EDMS EDMS 18:29 18:29 LACTATE+C.LAB.BRZ ordered. EDMS EDMS 18:29 18:29 PROTIME (+INR)+COAG.LAB.BRZ ordered. EDMS EDMS 18:29 18:29 PTT, ACTIVATED+COAG.LAB.BRZ ordered. EDMS EDMS 18:29 18:29 Urinalysis+U.LAB.BRZ ordered. EDMS EDMS 18:29 18:29 Chest Single View+RAD.RAD.BRZ ordered. EDMS EDMS 18:30 18:21 ED course: Patient arrives today for poor p.o. intake, generalized weakness as ec2 well as urinary frequency.. ec2 20:53 20:53 GLUCOSE+C.LAB.BRZ ordered. EDMS EDMS 22:02 21:35 sp4 vk 22:26 21:35 Telemetry/MedSurg (Inpatient) sp4 cg 22:26 22:02 230 vk cg
--- NOTE | 2024-05-17 21:36 | ER ---
Nurse's Notes [facility] Name: Constantino Chao Age: 49 yrs Sex: Male : 1975 Arrival Date: 05/17/2024 Time: 18:02 Bed 2 Private MD: Diagnosis: Type 2 diabetes mellitus with hyperglycemia;Dehydration;Acute renal insufficiency, moderate to severe dehydration, uncontrolled diabetes Presentation: 05/17 18:21 Chief complaint: Patient states: Increased urination, irritation to scrotum onset 1.5 cm10 weeks ago. Pt states that he has not had his diabetic medications in 2.5 months. Pt also reports using meth on . Coronavirus screen: Client denies travel out of the [place] in the last 14 days. Ebola Screen: Patient denies travel to an Ebola-affected area in the 21 days before illness onset. Initial Sepsis Screen: Does the patient meet any 2 criteria? RR > 20 per min. HR > 90 bpm. Does the patient have a suspected source of infection? No. Patient's initial sepsis screen is negative. Risk Assessment: Do you want to hurt yourself or someone else? Patient reports no desire to harm self or others. Onset of symptoms was May 17, 2024. 18:21 Method Of Arrival: Ambulatory cm10 18:21 Acuity: MARNI 3 cm10 Triage Assessment: 18:25 General: Appears in no apparent distress. uncomfortable, Behavior is calm, cooperative. cm10 Pain: Complains of pain in Pain all over Pain currently is 8 out of 10 on a pain scale. Neuro: No deficits noted. Level of Consciousness is awake, alert, obeys commands, Oriented to person, place, time, situation, Appropriate for age. Respiratory: No deficits noted. Airway is patent Respiratory effort is even, unlabored, Respiratory pattern is regular, symmetrical. : Reports urinary frequency. Historical: - Allergies: 18:23 Aspirin; cm10 18:23 Baclofen; cm10 18:23 Morphine; cm10 - PMHx: 18:23 chronic back pain; diabetes mellitus; headache; cm10 - PSHx: 18:23 back surgery; cm10 - Immunization history:: Adult Immunizations unknown. - Infectious Disease History:: Denies. - Social history:: Smoking status: Patient reports the use of cigarette tobacco products, smokes one-half pack cigarettes per day, Patient uses street drugs, marijuana, Methamphetamine (Meth). - Family history:: not pertinent. Screenin:[facility] ED Fall Risk Assessment (Adult) History of falling in the last 3 months, cm10 including since admission No falls in past 3 months (0 pts) Confusion or Disorientation No (0 pts) Intoxicated or Sedated No (0 pts) Impaired Gait No (0 pts) Mobility Assist Device Used No (0 pt) Altered Elimination No (0 pt) Score/Fall Risk Level 0 - 2 = Low Risk Oriented to surroundings, Maintained a safe environment, Hourly rounding (assess needs \T\ fall precautionary measures) done. Abuse screen: Denies threats or abuse. Denies injuries from another. Nutritional screening: No deficits noted. Tuberculosis screening: No symptoms or risk factors identified. Assessment: 21:08 Reassessment: Patient appears in no apparent distress at this time. Patient and/or cm10 family updated on plan of care and expected duration. Pain level reassessed. Patient is alert, oriented x 3, equal unlabored respirations, skin warm/dry/pink. Vital Signs: 18:21 BP 110 / 82; Pulse 110; Resp 24; Temp 98.4(O); Pulse Ox 98% on R/A; Weight 88.45 kg; cm10 Height 6 ft. 2 in. ; Pain 8/10; 19:30 BP 134 / 88; Pulse 88; Resp 15; Pulse Ox 98% on R/A; cm10 20:00 BP 124 / 85; Pulse 85; Resp 15; Pulse Ox 99% ; cm10 21:00 BP 129 / 92; Pulse 89; Resp 15; Pulse Ox 97% on R/A; cm10 18:21 Body Mass Index 25.04 (88.45 kg, 187.96 cm) cm10 18:21 Pain Scale: Adult cm10 Chung Coma Score: 19:33 Eye Response: spontaneous(4). Motor Response: obeys commands(6). Verbal Response: sp4 oriented(5). Total: 15. ED Course: 18:03 Patient arrived in ED. ec2 18:04 Rafa Golden MD is Attending Physician. ec2 18:16 Melissa Smith, STEVEN is Primary Nurse. cm10 18:23 Triage completed. cm10 18:24 Arm band placed on right wrist. Patient placed in an exam room, on a stretcher, on cm10 pulse oximetry. 18:35 Initial lab(s) drawn, by me, sent to lab. First set of blood cultures drawn by me. cm10 Inserted saline lock: 18 gauge in left forearm, using aseptic technique. Blood collected. Flushed with 10 mL NS. 18:47 CBC with Diff Sent. cm10 18:47 CMP Sent. cm10 18:47 Lactate w/ 2H reflex if indic. Sent. cm10 18:47 Protime (+inr) Sent. cm10 19:00 Second set of blood cultures drawn by me. cm10 19:02 Attending Physician role handed off by Rafa Golden MD sp4 19:02 Conner Beckwith MD is Attending Physician. sp4 19:17 Patient has correct armband on for positive identification. Bed in low position. Call cm10 light in reach. Side rails up X2. Provided Education on: ER process and procedures.. Client placed on continuous cardiac and pulse oximetry monitoring. NIBP monitoring applied. monitor technician on. 19:21 EKG done, by ED staff, reviewed by Conner Beckwith MD. ay 19:23 Chest Single View XRAY In Process Unspecified. EDMS 21:03 Accessed peripheral vein via ultrasound, utilizing dynamic ultrasound technique Blood cm10 collected. Clean \T\ dry. Dressing intact. Good blood return. Flushes easily. 18g right forearm. 21:34 Prince Mccarthy MD is Hospitalizing Provider. sp4 22:38 No provider procedures requiring assistance completed. Patient admitted, IV remains in bm8 place. Administered Medications: 19:04 Drug: NS 0.9% IV (30 ml/kg) 30 ml/kg IV at bolus once; Sepsis Protocol; to be given as cm10 a bolus over 90 minutes Route: IV; Rate: bolus; Site: left forearm; 20:17 Follow up: Response: No adverse reaction; IV Status: Completed infusion; IV Intake: cm10 2653.5ml 19:37 Drug: Insulin Regular Human IVP 10 units IVP once {Co-Signature: laura (Caprice Reis RN).} Route: IVP; Site: left forearm; 20:21 Follow up: Response: No adverse reaction cm10 19:38 Drug: Rocephin IV 1 grams IV at calculated rate once; Given slow IV push per pharmacy cm10 instructions Route: IV; Rate: calculated rate; Site: left forearm; 19:45 Follow up: Response: No adverse reaction; IV Status: Completed infusion; IV Intake: [id number] 19:58 Drug: HYDROcodone-acetaminophen PO 5 mg-325 mg 2 tabs PO once Route: PO; cm10 20:40 Follow up: Response: No adverse reaction cm10 19:58 Drug: Fluconazole PO 200 mg PO once Route: PO; cm10 20:40 Follow up: Response: No adverse reaction cm10 20:17 Drug: metroNIDAZOLE IVPB 500 mg 100 ml IVPB at 200 ml/hr once over 30 mins Volume: 100 cm10 ml; Route: IVPB; Rate: 200 ml/hr; Infused Over: 30 mins; Site: left forearm; 21:24 Follow up: Response: No adverse reaction; IV Status: Completed infusion; IV Intake: cm10 100ml 20:17 Drug: NS 0.9% IV 1000 ml IV at 125 ml/hr Per protocol; to be given as a bolus over 60 cm10 minutes Route: IV; Rate: 125 ml/hr; Site: left forearm; 22:31 Follow up: Response: No adverse reaction; IV Status: Infusion continued upon admission; bm8 IV Intake: 250ml 20:40 Drug: Insulin Regular Human IVP 10 units IVP once {Co-Signature: bm8 (Hank Lawrence cm10 RN).} Route: IVP; Site: left forearm; 21:10 Follow up: Response: No adverse reaction cm10 22:31 Drug: Potassium Chloride PO Liquid 40 mEq PO once Route: PO; bm8 22:39 Follow up: Response: No adverse reaction bm8 22:31 Drug: NS 0.9% IV 1000 ml IV at 1 bolus Per protocol; to be given as a bolus over 60 bm8 minutes Route: IV; Rate: 1 bolus; Site: left forearm; 22:38 Follow up: Response: No adverse reaction; IV Status: Completed infusion; Infusion bm8 continued upon admission 22:31 Drug: Albumin IVPB 25 grams 100 ml IVPB once; (Note: Albumin 25% concentration) Volume: bm8 100 ml; Route: IVPB; Site: right forearm; 22:38 Follow up: Response: No adverse reaction; IV Status: Infusion continued upon admission bm8 22:32 Drug: Potassium Chloride IV 20 mEq IV at calculated rate once; administer over 1-2 bm8 hours Route: IV; Rate: calculated rate; Site: left forearm; 22:40 Follow up: Response: No adverse reaction; IV Status: Infusion continued upon admission bm8 Medication: 19:16 VIS not applicable for this client. cm10 Point of Care Testing: Blood Glucose: 19:05 Blood Glucose: High (>450 mg/dL); cm10 20:22 Blood Glucose: High (>450 mg/dL); cm10 Ranges: Intake: 19:45 IV: 10ml; Total: 10ml. cm10 20:17 IV: 2654ml; Total: 2664ml. cm10 21:24 IV: 100ml; Total: 2764ml. cm10 22:31 IV: 250ml; Total: 3014ml. bm8 Outcome: 21:35 Decision to Hospitalize by Provider. sp4 22:38 Admitted to ICU accompanied by nurse, via stretcher, room icu 7, bm8 22:38 Condition: stable 22:38 Instructed on follow up and referral plans. the need for admit, Demonstrated understanding of follow-up care, medications, 23:01 Patient left the ED. bm8 Signatures: Dispatcher [employer] Conner Chung MD MD sp4 Melissa Smith, RN RN cm10 Rafa Golden MD MD ec2 Hank Lawrence, RN RN bm8 Caprice Reis, Caprice Swartz RN, RN, Brad RN bm8
[2024-05-17] MEDS ORDERED: ONDANSETRON 4 MG/2 ML VIAL IV PRN (21:55)
[2024-05-17] MEDS ORDERED: POTASSIUM CL SA 10 MEQ TAB PO ONE (22:21)
[2024-05-17] MEDS ORDERED: ALBUMIN HUMAN 25% 100 ML IV ONE (22:22)
[2024-05-17] MEDS ORDERED: KCL 20 MEQ/100 mL IVPB 100 ML IV ONE (22:22)
--- NOTE | 2024-05-17 22:25 | P.HP ---
Certification for Inpatient Patient admitted to: Inpatient With expected LOS: >2 Midnights Practitioner: I am a practitioner with admitting privileges, knowledge of patient current condition, hospital course, and medical plan of care. Services: Services provided to patient in accordance with Admission requirements found in Title 42 Section 412.3 of the Code of Federal Regulations Patient History Date of Service: 05/17/24 Reason for admission: HHS, CHAU, dehydration History of Present Illness: Patient is a 49 year old male currently homeless. He is from [place]. He presents to the ER complaining of generalized weakness and dehydration. He also has penile discharge, which the ER cleaned and suspected to be from poor hygiene. Patient is supposed to be on twice a day lantus, and pre-meal insulin. He has been non-compliant with his insulin and anti-HTN drugs. Work up in the ER revealed a BG of 932, K+ 5.4 and Cr of 2.0. He received 10 units of IV regular insulin x 2. His BG dropped to 432. He is being considered for ICU due to hypotension. His SBP 89 mmHg despite aggressive volume repletion. Physical Examination - Physical Exam General: Cooperative, Other (clinically dry) HEENT: Atraumatic, Normocephalic Respiratory: Clear to auscultation bilaterally, Normal air movement Cardiovascular: No edema, Normal pulses, Regular rate/rhythm, Normal S1 S2 Neurological: Normal speech - Studies Laboratory Data (last 24 hrs) 05/17/24 05/17/24 05/17/24 21:00 21:00 18:35 WBC Hgb Hct Plt Count PT 9.9 INR 0.88 APTT 26.7 Sodium 134 L D Potassium 3.9 D BUN 22 H Creatinine 1.52 H Glucose 427 H* 427 H* Total Bilirubin AST ALT Alkaline Phosphatase 05/17/24 05/17/24 18:35 18:35 WBC 16.00 H Hgb 15.6 Hct 47.2 Plt Count 478 H PT INR APTT Sodium 119 L* Potassium 5.4 H BUN 25 H Creatinine 2.07 H Glucose 932 H* Total Bilirubin 0.8 AST 24 ALT 47 Alkaline Phosphatase 102 Microbiology Data (last 24 hrs): 05/17/24 19:43 Nasopharnyx Influenza Type A Antigen Screen - Final 05/17/24 19:43 Nasopharnyx Influenza Type B Antigen Screen - Final Assessment and Plan - Problems (Diagnosis) (1) Hyperosmolar hyperglycemic state (HHS) Current Visit: Yes Status: Acute (2) CHAU (acute kidney injury) Current Visit: Yes Status: Acute (3) Hyponatremia Current Visit: Yes Status: Acute (4) Hyperkalemia Current Visit: Yes Status: Acute (5) Homeless Current Visit: Yes Status: Acute - Plan Assessment Patient is a 49 year old male being admitted for HHS, CHAU and hyperkalemia after he presented with generalized eweakness and dehydration. His presenting BG was 932 and improved to 432 after 20 mg of IV regular insulin. HHS Hypotension CHAU Hyperkalemia Homelessness PLAN: Will admit to ICU for hemodynamic monitoring Will continue aggressive volume repletion ER to place a central line. Appreciate assistance from ER Continue insulin drip until am Start scheduled lantus 10 units BID along with insulin sliding scale Check HbA1c TTE for hypotension - Advance Directives Does patient have a Living Will: No Does patient have a Durable POA for Healthcare: No
[2024-05-17] MEDS: NA CHLORIDE 0.9% 1,000 ML IV SCH (23:09)
[2024-05-17] MEDS ORDERED: D50W 25 GM/50 ML SYRINGE IV PRN (23:51)
[2024-05-17] MEDS ORDERED: GLUCAGON 1 MG/VIAL IM PRN (23:51)
[2024-05-17] MEDS ORDERED: D10W 125 ML IV PRN (23:57)
[2024-05-18] MEDS: INSULIN REGULAR, HUMAN 100 UNIT in NA CHLORIDE 0.9% 100 ML IV SCH (00:40)
[2024-05-18 00:42] LABS: Magnesium 2.1 mg/dL (1.6-2.4); Phosphorus 3.4 mg/dL (2.5-4.9)
[2024-05-18] MEDS: HEPARIN 5000 UNIT/ML 1 ML VIAL SQ SCH (00:43)
[2024-05-18 01:20] VITALS: O2SAT 99
[2024-05-18] MEDS ORDERED: GLUCAGON 1 MG/VIAL IM PRN ×2 (04:14→04:15)
[2024-05-18] MEDS ORDERED: D50W 25 GM/50 ML SYRINGE IV PRN (04:14)
[2024-05-18] MEDS ORDERED: D10W 125 ML IV PRN (04:15)
[2024-05-18 06:14] LABS: Absolute Eosinophils 0.1 K/uL (0-0.5); Absolute Lymphocytes (CBC) 4.4 K/uL (0.7-4.9); Absolute Monocytes 0.9 K/uL (0.1-1.3); Absolute Neutrophil 7.3 K/uL (1.8-8.0); Basophils % 0.3 % (0-1.3); Eosinophils % 1.1 % (0-4.4); Hematocrit 36.3 % (39.6-49.0); Hemoglobin 12.7 g/dL (13.6-17.9); Lymphocytes % 34.3 % (15.3-44.8); MCH 29.1 pg (27.0-35.0); MCHC 35.1 g/dL (32.0-36.0); MCV 82.9 fL (80-100); MPV 8.1 fL (7.6-11.3); Monocytes % 7.2 % (3.3-12.3); Neutrophils % 57.1 % (41.7-73.7); Platelets 408 thou/uL (152-406); RBC Red Blood Cell Count 4.38 M/uL (4.33-5.43); Red Cell Distribution Width 13.2 % (12.1-15.2)
[2024-05-18 06:52] LABS: Magnesium 2.1 mg/dL (1.6-2.4); Phosphorus 3.4 mg/dL (2.5-4.9)
[2024-05-18 07:02] LABS: Anion Gap 10.8 mEq/L (5.0-15.0)
[2024-05-18 07:04] LABS: Potassium 4.8 mEq/L (3.5-5.1)
[2024-05-18] MEDS: INSULIN REGULAR (HUMAN) 100 UNIT/ML SQ SCH ×2 (07:30→11:30)
--- NOTE | 2024-05-18 08:29 | RAD REPORT ---
EXAMINATION: US RENAL CLINICAL INDICATION: Acute renal insufficiency TECHNIQUE: Real-time ultrasonography of the kidneys performed. COMPARISON: No prior exam. FINDINGS: Right kidney measures 13 cm with a normal echotexture.. 4 mm echogenic structure right kidney. No hyd ronephrosis. 9 mm cyst. Left kidney measures 11 cm with normal echotexture. No hydronephrosis Mild bladder distention IMPRESSION: 4 mm echogenic structure right kidney may resent a nonobstructing calculus Mild bladder distention
--- NOTE | 2024-05-18 08:33 | RAD REPORT ---
EXAMINATION: ULTRASOUND DUPLEX OF SCROTUM AND TESTICLES CLINICAL INDICATION: Testicular pain TECHNIQUE: Duplex scan of the scrotal contents was performed including real-time color and spectral D oppler ultrasonography with arterial inflow and venous outflow. COMPARISON: No prior exam. FINDINGS: Right testicle measures 2.7 x 2 x 2 cm with a normal echotexture. Normal blood flow. Left testicle measures 3.1 x 1.6 x 2.2 cm with a normal echotexture. Normal blood flow.Small calcific ation left testicle. Right epididymis normal in size and echotexture. Normal blood flow Left epididymis normal in size and echotexture. 3 mm left spermatocele. Normal blood flow. IMPRESSION: No significant abnormalities displayed
[2024-05-18] MEDS: INSULIN NPH (HUMAN) 100 UNITS/ML SQ SCH (08:34)
--- NOTE | 2024-05-18 08:46 | P.PN ---
Subjective Date of Service: 05/18/24 Chief Complaint: HHS, CHAU, dehydration Subjective: Improving Outpatient Sunday he is feeling much better, denied any headache and nausea and vomiting, feel hungry, ready to eat. He is homeless, ran out of insulin. Review of Systems Other: Consitutional; fever(-), chills (-), rigor(-), night sweat(-), unintentional weight loss(-), malaise (-) HEENT; diplopia (-), rhinorrhea (-), epistaxis (-), otorrhea (-), otalgia (-) Respiratory; shortness of breath (-), wheezing (-), cough (-), sputum (-), pleuritic chest pain (-) Cardiovascular; chest pain (-), peripheral edema (-), paroxysmal nocturnal dyspnea (-), orthopnea (-) Gastrointestinal; nausea (-), vomiting (-), abdominal pain (-), diarrhea (-), constipation (-), melena (-), hematochezia (-) Genitourinary; urinary frequency (-), dysuria (-), urgency (-), flank pain (-), gross hematuria (-), incontinence (-) Skin; rash (-), pruritus (-) PSYCHOPAEDIC NURSE; headache (-), paresthesia (-), numbness (-), paralysis (-) Physical Examination - Vital Signs Temperature: 98.5 F Blood Pressure: 128/86 Pulse: 78 Respirations: 21 Pulse Ox (%): 99 - Physical Exam Other Physical/Emotional Findings: - Physical Exam. General: Not acutely ill looking, in no apparent distress,. HEENT: Normocephalic, atraumatic, nonicteric sclera, nonanemic conjunctive. Neck: Supple, without JVD or goiter or thyroid mass. Respiratory: Normal breathing effort, clear to auscultation bilaterally, no crackles no wheezing or rhonchi. Cardiovascular: Regular rate and rhythm, S1, S2 normal, no murmur no gallop. Gastrointestinal: Normal bowel sounds, nondistended, nontender, No ascites, , No masses, no hepatosplenomegaly. Extremities : No clubbing, No peripheral edema, full range of motion, no deformity, no muscle atrophy. Integumentary: No rashes, petechia, suspected l esions. Lymphatics: No axilla or cervical lymphadenopathy. Neurology; alert awake oriented x3, no focal neurologic deficit, normal affection . mood and behavior. - Studies Laboratory Data (last 24 hrs) 05/17/24 05/17/24 05/17/24 21:00 21:00 18:35 WBC Hgb Hct Plt Count PT 9.9 INR 0.88 APTT 26.7 Sodium 134 L D Potassium 3.9 D BUN 22 H Creatinine 1.52 H Glucose 427 H* 427 H* Total Bilirubin AST ALT Alkaline Phosphatase 05/17/24 05/17/24 18:35 18:35 WBC 16.00 H Hgb 15.6 Hct 47.2 Plt Count 478 H PT INR APTT Sodium 119 L* Potassium 5.4 H BUN 25 H Creatinine 2.07 H Glucose 932 H* Total Bilirubin 0.8 AST 24 ALT 47 Alkaline Phosphatase 102 Microbiology Data (last 24 hrs): 05/17/24 19:43 Nasopharnyx Influenza Type A Antigen Screen - Final 05/17/24 19:43 Nasopharnyx Influenza Type B Antigen Screen - Final Assessment And Plan - Plan Patient is a 49 year old male with past medical history notable for type 2 diabetes on insulin, hypertension, currently homeless, ran out of insulin a few days ago. He was admitted for HHS, CHAU and hyperkalemia after he presented with generalized eweakness and dehydration. His presenting BG was 932 and improved to 432 after 20 mg of IV regular insulin. #1 hyperosmolar hyperglycemic status, no DKA due to #2 Normal mental status, no neurologic deficit, Initial serum glucose 932, serum bicarb 24, mild ketonuria, serum osmolality ordered Blood sugar down to 300 after insulin infusion, will switch over to subcu insulin this morning #2 uncontrolled type 2 diabetes Hemoglobin A1c pending, I will continue NPH 10 units twice daily, 0.25 unit/kg, 8 unit lispro x 3 with meal, 0.1 unit/kg, moderate insulin sliding scale 3. Severe dehydration due to osmotic diuresis related to #1 Blood pressure improved after volume challenge and maintenance IV fluid 4. CHAU with mild hyperkalemia without EKG change associated with #3 Initial serum creatinine 2.07, continue to improve trending down after volume resuscitation, now normalized Renal ultrasound result reviewed, nonobstructive renal stone but no obstructive uropathy #5 hypotension with history of hypertension due to #3 Resolved, I will continue normal saline infusion, hold his hypertensive regiment. DVT prophylaxis enoxaparin subc Disposition, possible downgraded to general medical floor later today
[2024-05-18] MEDS: INSULIN LISPRO 100 UNIT/1 ML SQ SCH (12:13)
[2024-05-19 06:27] VITALS: BMI 25.2
[2024-05-19 06:32] LABS: Absolute Eosinophils 0.1 K/uL (0-0.5); Absolute Monocytes 0.5 K/uL (0.1-1.3); Absolute Neutrophil 5.3 K/uL (1.8-8.0); Basophils % 0.4 % (0-1.3); Eosinophils % 0.7 % (0-4.4); Hematocrit 36.2 % (39.6-49.0); Hemoglobin 12.4 g/dL (13.6-17.9); Lymphocytes % 33.6 % (15.3-44.8); MCH 28.9 pg (27.0-35.0); MCHC 34.3 g/dL (32.0-36.0); MCV 84.4 fL (80-100); Monocytes % 5.5 % (3.3-12.3); Neutrophils % 59.8 % (41.7-73.7); Nucleated Red Blood Cells % 0.2 % (0-0); Platelets 359 thou/uL (152-406); RBC Red Blood Cell Count 4.29 M/uL (4.33-5.43); Red Cell Distribution Width 13.3 % (12.1-15.2)
[2024-05-19 06:46] LABS: Anion Gap 7.7 mEq/L (5.0-15.0); Magnesium 1.9 mg/dL (1.6-2.4); Phosphorus 2.8 mg/dL (2.5-4.9); Potassium 4.7 mEq/L (3.5-5.1)
--- NOTE | 2024-05-19 07:39 | P.PN ---
Subjective Date of Service: 05/19/24 Chief Complaint: HHS, CHAU, dehydration Review of Systems 10-point ROS is otherwise unremarkable Physical Examination - Vital Signs Temperature: 98.2 F Blood Pressure: 141/72 Pulse: 87 Respirations: 18 Pulse Ox (%): 98 - Physical Exam General: Alert, In no apparent distress, Oriented x3 HEENT: Atraumatic, Normocephalic, PERRLA Neck: Supple, 2+ carotid pulse no bruit Respiratory: Clear to auscultation bilaterally, Normal air movement Cardiovascular: Normal pulses, Regular rate/rhythm, Normal S1 S2 Capillary refill: <2 Seconds Gastrointestinal: Normal bowel sounds, Soft and benign Musculoskeletal: No clubbing, No swelling Integumentary: Other (Yeast infection) Neurological: Normal speech, Normal strength at 5/5 x4 extr, Normal tone Assessment And Plan - Plan Assessment And Plan - Plan Patient is a 49 year old male with past medical history notable for type 2 diabetes on insulin, hypertension, currently homeless, ran out of insulin a few days ago. He was admitted for HHS, CHAU and hyperkalemia after he presented with generalized eweakness and dehydration. His presenting BG was 932 and improved to greater than 900, 432 still elevated, hyperosmolar hyperglycemic status, no DKA due to #2 Initial serum glucose 932, serum bicarb 24, mild ketonuria, serum osmolality o rdered Blood sugar down to 300 after insulin infusion, will switch over to subcu insulin this morning Increased 70/30, added long-acting insulin type 2 diabetes with hyperglycemia Hemoglobin A1c pending, I will continue NPH 10 (increased to 15) units twice daily, 8 unint lispro x 3 with meal, 0.1 unit/kg, moderate insulin sliding scale Severe dehydration due to DKA Blood pressure improved after volume challenge and maintenance IV fluid CHAU secondary to dehydration Initial serum creatinine 2.07, continue to improve trending down after volume resuscitation, now normalized Renal ultrasound result reviewed, nonobstructive renal stone but no obstructive uropathy hypotension resolved Treated with IV fluids, Yeast infection Nystatin, fluconazole p.o. x 1 DVT prophylaxis enoxaparin subc Disposition, possible downgraded to general medical floor later today Discharge Plan: Home Critical Care: No Time Spent Managing PTS Care (In Minutes): 35
[2024-05-19] MEDS: INSULIN NPH (HUMAN) 100 UNITS/ML SQ SCH (10:41)
[2024-05-19] MEDS: INSULIN GLARGINE 100 UNIT/ML SQ SCH (15:27)
[2024-05-19] MEDS: FLUCONAZOLE 100 MG TAB PO ONE ×2 (16:13→21:38)
[2024-05-19] MEDS: NYSTATIN 100MU/GM CREAM 15GM TOP SCH (18:45)
[2024-05-19] MEDS: METFORMIN HCL 500 MG TAB PO SCH (18:46)
[2024-05-19] MEDS: INSULIN REGULAR (HUMAN) 100 UNIT/ML SQ SCH (21:38)
[2024-05-20 05:26] LABS: Absolute Basophils 0.1 K/uL (0-0.5); Absolute Eosinophils 0.1 K/uL (0-0.5); Absolute Lymphocytes (CBC) 2.8 K/uL (0.7-4.9); Absolute Monocytes 0.6 K/uL (0.1-1.3); Absolute Neutrophil 6.4 K/uL (1.8-8.0); Eosinophils % 0.9 % (0-4.4); Hematocrit 35.2 % (39.6-49.0); Hemoglobin 12.2 g/dL (13.6-17.9); Lymphocytes % 28.1 % (15.3-44.8); MCH 29.5 pg (27.0-35.0); MCHC 34.6 g/dL (32.0-36.0); MCV 85.2 fL (80-100); Monocytes % 5.8 % (3.3-12.3); Neutrophils % 64.2 % (41.7-73.7); Nucleated Red Blood Cells % 0.1 % (0-0); Platelets 370 thou/uL (152-406); RBC Red Blood Cell Count 4.13 M/uL (4.33-5.43); Red Cell Distribution Width 13.6 % (12.1-15.2)
[2024-05-20 06:44] LABS: Albumin 2.5 g/dL (3.4-5.0); Anion Gap 9.5 mEq/L (5.0-15.0); Magnesium 1.8 mg/dL (1.6-2.4); Phosphorus 2.4 mg/dL (2.5-4.9); Potassium 4.5 mEq/L (3.5-5.1)
--- NOTE | 2024-05-20 07:34 | P.DS ---
Admission Date: 05/17/24 Discharge Date: 05/20/24 Disposition: ROUTINE DISCHARGE Reason for Admission: HHS, CHAU, dehydration Brief History of Present Illness: Patient is a 49 year old male currently homeless. He is from [place]. He presents to the ER complaining of generalized weakness and dehydration. He also has penile discharge, which the ER cleaned and suspected to be from poor hygiene. Patient is supposed to be on twice a day lantus, and pre-meal insulin. He has been non-compliant with his insulin and anti-HTN drugs. Work up in the ER revealed a BG of 932, K+ 5.4 and Cr of 2.0. He received 10 units of IV regular insulin x 2. His BG dropped to 432. He is being considered for ICU due to hypotension. His SBP 89 mmHg despite aggressive volume repletion. - Physical Exam General: Alert, In no apparent distress, Oriented x3 HEENT: Atraumatic, Normocephalic, PERRLA Neck: Supple, 2+ carotid pulse no bruit Respiratory: Clear to auscultation bilaterally, Normal air movement Cardiovascular: Normal pulses, Regular rate/rhythm, Normal S1 S2 Capillary refill: <2 Seconds Gastrointestinal: Normal bowel sounds, Soft and benign Musculoskeletal: No clubbing, No swelling Integumentary: Other (Yeast infection) Neurological: Normal speech, Normal strength at 5/5 x4 extr, Normal tone Hospital Course: 49 year old male currently homeless. He is from [place]. He presents to the ER complaining of generalized weakness and dehydration. He also has penile discharge, which the ER cleaned and suspected to be from poor hygiene. Patient is supposed to be on twice a day lantus, and pre-meal insulin. He has been non-compliant with his insulin and anti-HTN drugs. Work up in the ER revealed a BG of 932, K+ 5.4 and Cr of 2.0. He received 10 units of IV regular insulin x 2. His BG dropped to 432. He is being considered for ICU due to hypotension. His SBP 89 mmHg despite aggressive volume repletion. 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 after discharge blood glucose, improved, instructed on strict blood glucose monitoring, control after discharge blood glucose, improved, instructed on strict blood glucose monitoring, control after discharge Glucometer with strips, and supplies sent to [facility] pharmacy Insulin with insulin needles ordered Assessment hyperosmolar hyperglycemic status, hemoglobin A1c 13.1 Diabetes with hyperglycemia-due to uncontrolled diabetes educated on blood glucose monitor Dehydration due to hyperglycemia CHAU treated with IV fluids, improved, Hypotension, treated with IV fluid Yeast infection, treated with fluconazole, nystatin Continue home medicines as previously prescribed GOAL: Clear understanding of disease process INSTRUCTIONS: Physician Discharge Instructions: -Follow-up with PCP in 1 to 2 weeks -Follow-up with endocrinology after discharge -Please call Dr. Lam at [phone] if any questions regarding hospital stay -Please call nursing station at [phone] if any nursing or medication questions -Return to the emergency room if symptoms worsen Diet: ADA, low sodium Activity: Fall precautions Vital Signs/Physical Exam: Temp Pulse Resp BP Pulse Ox 97.9 F 97 H 18 135/71 98 05/20/24 04:00 05/20/24 04:00 05/20/24 04:00 05/20/24 04:00 05/20/24 04:00 Other Physical/Emotional Findings: - Physical Exam. General: Not acutely ill looking, in no apparent distress,. HEENT: Normocephalic, atraumatic, nonicteric sclera, nonanemic conjunctive. Neck: Supple, without JVD or goiter or thyroid mass. Respiratory: Normal breathing effort, clear to auscultation bilaterally, no crackles no wheezing or rhonchi. Cardiovascular: Regular rate and rhythm, S1, S2 normal, no murmur no gallop. Gastrointestinal: Normal bowel sounds, nondistended, nontender, No ascites, , No masses, no hepatosplenomegaly. Extremities : No clubbing, No peripheral edema, full range of motion, no deformity, no muscle atrophy. Integumentary: No rashes, petechia, suspected lesions. Lymphatics: No axilla or cervical lymphadenopathy. Neurology; alert awake oriented x3, no focal neurologic deficit, normal affection . mood and behavior. Laboratory Data at Discharge: WBC 9.90 thou/uL (4.3-10.9) 05/20/24 04:54 Hgb 12.2 g/dL (13.6-17.9) L 05/20/24 04:54 Hct 35.2 % (39.6-49.0) L 05/20/24 04:54 Plt Count 370 thou/uL (152-406) 05/20/24 04:54 PT 9.9 SECONDS (9.4-12.5) 05/17/24 18:35 INR 0.88 05/17/24 18:35 APTT 26.7 SECONDS (24.3-36.9) 05/17/24 18:35 Sodium 135 mEq/L (136-145) L 05/20/24 04:54 Potassium 4.5 mEq/L (3.5-5.1) 05/20/24 04:54 BUN 14 mg/dL (7-18) 05/20/24 04:54 Creatinine 0.88 mg/dL (0.70-1.30) 05/20/24 04:54 Glucose 389 mg/dL (74-106) H 05/20/24 04:54 Phosphorus 2.4 mg/dL (2.5-4.9) L 05/20/24 04:54 Magnesium 1.8 mg/dL (1.6-2.4) 05/20/24 04:54 Total Bilirubin 0.8 mg/dL (0.2-1.0) 05/17/24 18:35 AST 24 U/L (15-37) 05/17/24 18:35 ALT 47 U/L (16-61) 05/17/24 18:35 Alkaline Phosphatase 102 U/L (45-117) 05/17/24 18:35 Home Medications: Desvenlafaxine Succinate [Pristiq] 100 mg PO DAILY 05/18/24 Hydromorphone HCl [Dilaudid] 4 mg PO QID PRN 05/18/24 Meloxicam 7.5 mg PO DAILY 05/18/24 Pregabalin [Lyrica] 30 mg PO BID 05/18/24 Tizanidine HCl 4 mg PO BID 05/18/24 Topiramate [Topamax] 200 mg PO DAILY 05/18/24 ziprasidone HCL [Geodon] 80 mg PO BID 05/18/24 Alogliptin Benzoate [Nesina] 50 mg PO DAILY 30 Days #30 tab 05/20/24 Blood-Glucose Meter [Blood Glucose Monitoring] 1 each MC DAILY 30 Days #1 kit 05/20/24 Insulin Lispro 8 unit SQ AC 30 Days #1 bottle 05/20/24 Insulin NPH Human [Novolin N (Humulin N)*] 15 units SQ BIDWM 30 Days #1 bottle 05/20/24 Losartan Potassium 50 mg PO DAILY 30 Days #30 tab 05/20/24 Metformin HCl [Glucophage*] 500 mg PO BIDWM 30 Days #60 tab 05/20/24 Nystatin Cream [Mycostatin 100MU/Gm Cream*] 1 appl TOP BID tube 05/20/24 Ondansetron [Zofran*] 4 mg IV Q6HP PRN vial 05/20/24 New Medications: Blood-Glucose Meter [Blood Glucose Monitoring] 1 each MC DAILY 30 Days #1 kit Metformin HCl [Glucophage*] 500 mg PO BIDWM 30 Days #60 tab Insulin Lispro 8 unit SQ AC 30 Days #1 bottle Losartan Potassium 50 mg PO DAILY 30 Days #30 tab Alogliptin Benzoate [Nesina] 50 mg PO DAILY 30 Days #30 tab Insulin NPH Human [Novolin N (Humulin N)*] 15 units SQ BIDWM 30 Days #1 bottle Physician Discharge Instructions: 49 year old male currently homeless. He is from [place]. He presents to the ER complaining of generalized weakness and dehydration. He also has penile discharge, which the ER cleaned and suspected to be from poor hygiene. Patient is supposed to be on twice a day lantus, and pre-meal insulin. He has been non-compliant with his insulin and anti-HTN drugs. Work up in the ER revealed a BG of 932, K+ 5.4 and Cr of 2.0. He received 10 units of IV regular insulin x 2. His BG dropped to 432. He is being considered for ICU due to hypotension. His SBP 89 mmHg despite aggressive volume repletion. 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 Lam at [phone] if any questions regarding hospital stay -Please call nursing station at [phone] if any nursing or medication questions -Return to the emergency room if symptoms worsen Diet: ADA, low sodium Activity: Fall precautions Diet: ADA Activity: Fall precautions Followup: OOT,OOT [Primary Care Provider] - Freddie Montesinos MD [OUTSIDE PHYSICIAN] - Time spent managing pt's care (in minutes): 45
[2024-05-20 09:30] VITALS: BP 163/96; TEMP 98.3
[2024-05-20] MEDS: INSULIN 70/30 100 UNITS/ML SQ SCH (10:04)
[2024-05-20] MEDS: ALOGLIPTIN BENZOATE 12.5 MG TABLET PO SCH (10:04)
--- NOTE | 2024-05-26 11:16 | EKG ---
Test Date: 2024-05-17 Test Time: 19:11:21 Rn Radiology: [facility] MEASUREMENT RESULTS: Intervals: Rate: 98 LA: 136 QRSD: 86 QT: 330 QTc: 421 [place]: P: 57 LA: 136 QRS: 56 T: 70 INTERPRETIVE STATEMENTS: Normal sinus rhythm Possible Left atrial enlargement Borderline ECG Compared to ECG 02/25/2024 21:24:52 T-wave abnormality no longer present Prolonged QT interval no longer present Electronically Signed On 05-26-24 11:02:41 DIRECTOR SPECIALTY by Ayden Parsons
== END 2024-05-20 13:25 | disposition home or self-care (01) | DRG 682 ==
LOC: ER 18:02 → 2ND 21:55 → 3RD-ICU 22:42 → 2ND 05-19 03:20
PROVIDERS: ADMIT Internal Medicine; ATTEND Hospitalist
DX: N17.9 Acute kidney failure, unspecified (principal); E11.00 Type 2 diabetes mellitus with hyperosmolarity without nonketotic hyperglycemic-hyperosmolar coma (NKHHC); R57.1 Hypovolemic shock; Z59.00 Homelessness unspecified; E87.1 Hypo-osmolality and hyponatremia; E87.5 Hyperkalemia; I10 Essential (primary) hypertension; E86.0 Dehydration; T38.3X6A Underdosing of insulin and oral hypoglycemic [antidiabetic] drugs, initial encounter; B37.9 Candidiasis, unspecified; F17.210 Nicotine dependence, cigarettes, uncomplicated; Z79.4 Long term (current) use of insulin; Z88.6 Allergy status to analgesic agent; Z88.5 Allergy status to narcotic agent; Z88.8 Allergy status to other drugs, medicaments and biological substances; Z91.148 Patient's other noncompliance with medication regimen for other reason
CPT/HCPCS: 36415; 71045; 76770; 76870; 80048; 80053; 80069; 81001; 82010; 82947; 83036; 83605; 83735; 83930; 84100; 84484; 85025; 85610; 85730; 87040; 87804; 93005; 99285; J0696; J1644; J1815; J3480; J7030; J7040; P9047